=== PATIENT | male | born 1990 | race Caucasian/White ===

== ENCOUNTER 2022-05-15 12:34 | Emergency (ER) | payer OTHER ==
[2022-05-15] MEDS ORDERED: methocarbamoL 750 MG TAB PO STA (14:09)
[2022-05-15] MEDS ORDERED: SODIUM CHLORIDE 0.9% 1,000 ML IV STA (14:09)
[2022-05-15] MEDS ORDERED: IBUPROFEN 800 MG TAB PO STA (14:09)
--- NOTE | 2022-05-15 14:21 | ED ---
General Adult HPI - General Chief complaint: Trauma Stated complaint: IHS-electrical injury Time Seen by Provider: 05/15/22 14:00 Source: patient, RN notes reviewed, old records reviewed Mode of arrival: ambulatory - History of Present Illness Initial comments: Patient is a 32-year-old male who presents emergency department seeking evaluation following electrocution injury. Injury occurred on Sunday. Is currently Sunday. Received a shock from [address] while at work. Patient states her shock to his right hand. At that time he states he felt "funny" afterwards but did not seek medical attention. No chest pain at that time. No shortness of breath. No loss of consciousness. Has been feeling improved but was told by his to come and get evaluated today. Is complaining of bilateral paraspinal muscle tenderness and stiffness in his neck. No midline bone tendern ess. Denies any chest pain, shortness breath, don't think nausea, vomiting. Denies any dark urine. Denies any other acute complaints. His no other injuries. Does notice a small blister that formed and is since popped on his left hand at the site of his ring which may be related to the electrocution. He is up-to-date on tetanus. No pain at this site. No other findings. Presents for further evaluation at this time. Is not on blood thinners. - Related Data Previous Rx's Medication Instructions Recorded Ibuprofen [Motrin] 600 mg PO Q6HR PRN #20 tab 07/23/16 Allergies Allergy/AdvReac Type Severity Reaction Status Date / Time No Known Allergies Allergy Verified 05/15/22 12:40 Review of Systems ROS Statement: Those systems with pertinent positive or pertinent negative responses have been documented in the HPI. Review of Systems: CONST: Denies fever EYES: Denies blurry vision ENT: Denies nasal congestion C/V: Denies Chest pain RESP: Denies shortness of breath GI: Denies abdominal pain : Denies dysuria SKIN: Denies rash. MSK: Endorses muscle pain NEURO: Denies headache ROS Other: All systems not noted in ROS Statement are negative. Past Medical History Past Medical History: No Reported History History of Any Multi-Drug Resistant Organisms: None Reported Past Surgical History: No Surgical Hx Reported Past Psychological History: No Psychological Hx Reported Past Alcohol Use History: Occasional Past Drug Use History: None Reported General Exam - General Exam Comments Initial Comments: General: Appears in no acute distress. HEAD: Normal with no signs of head trauma. EYES: PERRLA, EOMI, conjunctiva normal, no discharge. ENT: Hearing grossly intact, normal oropharynx. RESPIRATORY: Clear breath sounds bilaterally. No wheezes, rales, or rhonchi. C/V: Regular rate and rhythm. S1 and S2 auscultated, no edema, peripheral pulses 2+ and intact throughout ABD: Abd is soft, nontender, nondistended EXT: Normal range of motion, no obvious deformity. No midline cervical, thoracic or lumbar spine tenderness to palpation. Patient does have bilateral paraspinal muscle tenderness to palpation in both trapezius muscles. SKIN: Small first-degree burn located over the left ring finger. Erythematous. Minimally tender. Small abrasion at the site. NEURO: Alert and oriented x 4. Cranial nerves II-XII intact. No focal sensory or strength deficits. Course Vital Signs 05/15/22 05/15/22 12:38 16:28 Temperature 98.3 F 98.2 F Pulse Rate 86 Pulse Rate [ 75 Right] Respiratory 16 18 Rate Blood Pressure 153/94 Blood Pressure 124/83 [Right Arm Sitting] O2 Sat by Pulse 98 99 Oximetry Medical Decision Making - Medical Decision Making Based on the patient's presentation and physical exam, he did experience a low voltage electrocution on Sunday. Presents 2 days later for evaluation. Only Complaints are muscle stiffness in bilateral trapezius muscles as well as a small first degree burn at the site of his ring on his left ring finger. Presents to be evaluated. No episodes of chest pain, shortness of breath, syncope. Did recommend we obtain basic screening labs, CPK, urine, chest x-ray, EKG. He was in agreement this plan. Will be medically treated for his muscles pains. He was in agreement this plan. Vital signs within normal limits. Tetanus is up-to-date. EKG was obtained and shows no signs of acute ischemia. No arrhythmias. Chest x-ray shows no signs of acute cardio pulmonary process. Laboratory studies are remarkable for a negative CPK. Remainder the labs are un remarkable. On reevaluation, vital signs and within normal limits. I discussed the results with the patient. I believe it is safer to be discharged home at this time. He does seem to have a small first to a burn on his left finger. Discussed local wound care. Will be discharged home with close follow-up with his PCP. I instructed the patient to follow up with their PCP in the next 1-3 days. I explained that the patient should return to the emergency department if they experience any worsening symptoms. Strict return precautions were discussed with the patient. The patient expressed understanding of these instructions. I answered all questions that the patient had. The patient was discharged home in good condition with their prescriptions and follow up information. - Lab Data Result diagrams: 05/15/22 14:40 05/15/22 14:40 Lab Results 05/15/22 05/15/22 05/15/22 Range/Units 14:40 14:40 14:43 WBC 6.4 (3.8-10.6) k/uL RBC 4.89 (4.30-5.90) m/uL Hgb 15.7 (13.0-17.5) gm/dL Hct 45.8 (39.0-53.0) % MCV 93.6 (80.0-100.0) fL MCH 32.1 (25.0-35.0) pg MCHC 34.3 (31.0-37.0) g/dL RDW 11.8 (11.5-15.5) % Plt Count 238 (150-450) k/uL MPV 7.8 Neutrophils % 56 % Lymphocytes % 31 % Monocytes % 7 % Eosinophils % 3 % Basophils % 1 % Neutrophils # 3.6 (1.3-7.7) k/uL Lymphocytes # 2.0 (1.0-4.8) k/uL Monocytes # 0.5 (0-1.0) k/uL Eosinophils # 0.2 (0-0.7) k/uL Basophils # 0.0 (0-0.2) k/uL Sodium 139 (137-145) mmol/L Potassium 3.9 (3.5-5.1) mmol/L Chloride 102 (98-107) mmol/L Carbon Dioxide 27 (22-30) mmol/L Anion Gap 10 mmol/L BUN 13 (9-20) mg/dL Creatinine 0.81 (0.66-1.25) mg/dL Est GFR (CKD-EPI)AfAm >90 (>60 ml/min/1.73 sqM) Est GFR (CKD-EPI)NonAf >90 (>60 ml/min/1.73 sqM) Glucose 100 H (74-99) mg/dL Calcium 9.4 (8.4-10.2) mg/dL Magnesium 2.1 (1.6-2.3) mg/dL Creatine Kinase 120 (55-170) U/L Urine Color Yellow Urine Appearance Clear (Clear) Urine pH 6.5 (5.0-8.0) Ur Specific [place] 1.015 (1.001-1.035) Urine Protein Negative (Negative) Urine Glucose (UA) Negative (Negative) Urine Ketones Negative (Negative) Urine Blood Negative (Negative) Urine Nitrite Negative (Negative) Urine Bilirubin Negative (Negative) Urine Urobilinogen <2.0 (<2.0) mg/dL Ur Leukocyte Esterase Negative (Negative) - EKG Data -: EKG Interpreted by Me EKG Comments: 12-lead Electrocardiogram Interpretation Note EKG was reviewed and interpreted by myself. 12-lead ECG performed at 1429 is interpreted by me as revealing normal sinus rhythm at a rate of 77 beats per minute. [place] is normal. [place] interval is 143 ms, QRS duration is 90 ms, QTc is 393 ms.. There were no ST or T wave abnormalities to suggest myocardial ischemia or injury. R wave progression across the precordium was satisfactory. By my interpretation this EKG is non-diagnostic for acute ischemia. Disposition Clinical Impression: Electrocution, Myalgia, First degree burn Disposition: HOME SELF-CARE Condition: Good Instructions (If sedation given, give patient instructions): Musculoskeletal Pain (ED) Is patient prescribed a controlled substance at d/c from ED?: No Referrals: Rei Haines Jr, [Primary Care Provider] - 1-2 days Time of Disposition: 16:00
--- NOTE | 2022-05-15 15:00 | XR ---
EXAMINATION TYPE: XR chest 2V DATE OF EXAM: 05/15/2022 COMPARISON: NONE HISTORY: Electrocution injury with pain. TECHNIQUE: Frontal and lateral views of the chest are obtained. FINDINGS: There is no focal air space opacity, pleural effusion, or pneumothorax seen. The cardiac silhouette size is within normal limits. The osseous structures are intact. Overlying bilateral met allic nipple ornaments are incidentally noted. IMPRESSION: No acute cardiopulmonary process.
[2022-05-15 15:05] LABS: Appearance,Urine Clear (Clear); Bilirubin,Urine Negative (Negative); Blood,Urine Negative (Negative); Color,Urine Yellow; Glucose,Urine (UA) Negative (Negative); Ketones,Urine Negative (Negative); Leukocyte Esterase,Urine Negative (Negative); Nitrite,Urine Negative (Negative); PH, Urine 6.5 (5.0-8.0); Protein,Urine Negative (Negative); Specific Gravity,Urine 1.015 (1.001-1.035); Urobilinogen,Urine <2.0 mg/dL (<2.0)
[2022-05-15 15:18] LABS: Basophils % (A) 1 %; Eosinophils # (A) 0.2 k/uL (0-0.7); Eosinophils % (A) 3 %; HCT 45.8 % (39.0-53.0); HGB 15.7 gm/dL (13.0-17.5); Lymphocytes % (A) 31 %; MCH 32.1 pg (25.0-35.0); MCHC 34.3 g/dL (31.0-37.0); MCV 93.6 fL (80.0-100.0); Mean Platelet Volume 7.8; Monocytes # (A) 0.5 k/uL (0-1.0); Monocytes % (A) 7 %; Neutrophils # (A) 3.6 k/uL (1.3-7.7); Neutrophils % (A) 56 %; Platelet Count 238 k/uL (150-450); RBC 4.89 m/uL (4.30-5.90); RDW 11.8 % (11.5-15.5); WBC 6.4 k/uL (3.8-10.6)
[2022-05-15 15:26] LABS: African American GFR (CKD) >90 (>60 ml/min/1.73 sqM); Anion Gap 10 mmol/L; Blood Urea Nitrogen 13 mg/dL (9-20); Calcium 9.4 mg/dL (8.4-10.2); Carbon Dioxide 27 mmol/L (22-30); Chloride 102 mmol/L (98-107); Creatine Kinase 120 U/L (55-170); Glucose 100 mg/dL (74-99); Magnesium 2.1 mg/dL (1.6-2.3); Non-African American GFR(CKD) >90 (>60 ml/min/1.73 sqM); Potassium 3.9 mmol/L (3.5-5.1); Sodium 139 mmol/L (137-145)
[2022-05-15 16:30] VITALS: BP 124/83; PULSE 75; RESP 18; TEMP 98.2
== END 2022-05-15 16:36 | disposition home or self-care (01) ==
LOC: EC 12:34
DX: T75.4XXA Electrocution, initial encounter (principal); T23.122A Burn of first degree of single left finger (nail) except thumb, initial encounter; M79.10 Myalgia, unspecified site; T31.0 Burns involving less than 10% of body surface
CPT/HCPCS: 36415; 71046; 80048; 81003; 82550; 83735; 85025; 93005; 96360; 96361; 99285

== ENCOUNTER → 2023-11-13 | Outpatient (CLI) | payer OTHER ==
--- NOTE | 2023-11-13 15:18 | XR ---
EXAMINATION TYPE: XR hand complete LT DATE OF EXAM: 11/13/2023 COMPARISON: 11/19/2014 HISTORY: Laceration left thumb TECHNIQUE: 3 view left hand FINDINGS: No acute fracture or dislocation is evident. Osseous structures appear intact. Joint spaces are preserved. No radiopaque foreign bodies are evident. Follow up exams can be performed 7-10 days from acute trauma for continued pain. IMPRESSION: 1. No acute osseous abnormality right thumb. 2. No radiopaque foreign body is evident.
== END | disposition home or self-care (01) ==
LOC: RADXRMAIN 14:46
PROVIDERS: ATTEND Emergency Medicine
DX: S61.402A Unspecified open wound of left hand, initial encounter (principal); X58.XXXA Exposure to other specified factors, initial encounter

== ENCOUNTER 2024-12-24 10:47 | Emergency (ER) | payer OTHER ==
--- NOTE | 2024-12-24 11:15 | ED ---
Eye Problem HPI - General Chief complaint: Eye Problems Stated complaint: IHS-Eye Issue Time Seen by Provider: 12/24/24 11:02 Source: patient, RN notes reviewed Mode of arrival: ambulatory Limitations: no limitations - History of Present Illness Initial comments: 34-year-old male with no reported medical conditions presenting to emergency department from work for concerns of foreign body in his right eye. 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 States that he felt a foreign body in his right eye. Denies visual disturbances, photophobia. Denies contact lens use. Last tetanus vaccination was within the last year. - Related Data Previous Rx's Medication Instructions Recorded Ibuprofen [Motrin] 600 mg PO Q6HR PRN #20 tab 07/23/16 Allergies Allergy/AdvReac Type Severity Reaction Status Date / Time No Known Allergies Allergy Verified 12/24/24 10:54 Review of Systems ROS Statement: Those systems with pertinent positive or pertinent negative responses have been documented in the HPI. ROS Other: All systems not noted in ROS Statement are negative. Past Medical History Past Medical History: No Reported History History of Any Multi-Drug Resistant Organisms: None Reported Past Surgical History: No Surgical Hx Reported Past Psychological History: No Psychological Hx Reported Past Alcohol Use History: Occasional Past Drug Use History: None Reported General Exam Limitations: no limitations General appearance: alert, in no apparent distress Expanded Eyelids: Normal Inspection: Bilateral Pupils: Regular, Round: Bilateral Sclera/Conjunctival: Foreign Body: Right ENT exam: Present: normal exam, mucous membranes moist Respiratory exam: Present: normal lung sounds bilaterally. Absent: respiratory distress, wheezes, rales, rhonchi, stridor Cardiovascular Exam: Present: regular rate, normal rhythm, normal heart sounds. Absent: systolic murmur, diastolic murmur, rubs, gallop, clicks GI/Abdominal exam: Present: soft, normal bowel sounds. Absent: distended, tenderness, guarding, rebound, rigid Extremities exam: Present: normal inspection, full ROM, normal capillary refill. Absent: tenderness, pedal edema, joint swelling, calf tenderness Skin exam: Present: warm, dry, intact, normal color. Absent: rash Course Vital Signs 12/24/24 10:52 Temperature 98.1 F Pulse Rate 84 Respiratory 16 Rate Blood Pressure 150/98 O2 Sat by Pulse 99 Oximetry Medical Decision Making - Medical Decision Making Was pt. sent in by a medical professional or institution (, [facility], JOB COACH/JOB DEVELOPER, urgent care, hospital, or alf...) When possible be specific @ -No Did you speak to anyone other than the patient for history (EMS, parent, family, police, friend...)? What history was obtained from this source @ -No Did you review nursing and triage notes (agree or disagree)? Why? @ -I reviewed and agree with nursing and triage notes Were old charts reviewed (outside hosp., previous admission, EMS record, old EKG, old radiological studies, urgent care reports/EKG's, alf records)? Report findings @ -No old charts were reviewed Differential Diagnosis (chest pain, altered mental status, abdominal pain women, abdominal pain men, vaginal bleeding, weakness, fever, dyspnea, syncope, headache, dizziness, GI bleed, back pain, seizure, CVA, palpatations, mental health, musculoskeletal)? @ -Corneal abrasion, foreign body in the eye, corneal ulceration, this list is not all inclusive EKG interpreted by me (3pts min.). @ -None X-rays interpreted by me (1pt min.). @ -None done CT interpreted by me (1pt min.). @ -None done U/S interpreted by me (1pt. min.). @ -None done What testing was considered but not performed or refused? (CT, X-rays, U/S, labs)? Why? @ -None What meds were considered but not given or refused? Why? @ -None Did you discuss the management of the patient with other professionals (professionals i.e. MEHNAZ Phelan, JOB COACH/JOB DEVELOPER, lab, RT, psych nurse, psych social worker, power lineman, teacher, safety and security officer, director of casework)? Give summary @ -No Was smoking cessation discussed for >3mins.? @ -No Was critical care preformed (if so, how long)? @ -No Were there social determinants of health that impacted care today? How? (Homelessness, low income, unemployed, alcoholism, drug addiction, transportation, low edu. Level, literacy, decrease access to med. care, snf, rehab)? @ -No Was there de-escalation of care discussed even if they declined (Discuss DNR or withdrawal of care, Hospice)? DNR status @ -No What co-morbidities impacted this encounter? (DM, HTN, Smoking, COPD, CAD, Cancer, CVA, ARF, Chemo, Hep., AIDS, mental health diagnosis, sleep apnea, morbid obesity)? @ -None Was patient admitted / discharged? Hospital course, mention meds given and route, prescriptions, significant lab abnormalities, going to OR and other pert inent info. @ -Discharge. 34-year-old male presents emergency department with foreign body sensation of the right eye. There is a noted speck of metal at the 3 o'clock position of the right eye near the iris. On reevaluation after patient went to use the restroom the metal had moved into the lower conjunctival eyelid that was removed with a cotton swab. Fluorescein staining with direct visualization under Chapa lamp reveals a small corneal abrasion. Patient provided with Ciprodex drops and instructed to follow-up with tenant coordinator or primary care provider. Return parameters discussed. Patient is up-to-date on his tetanus vaccination. Case discussed with Dr. Gould Undiagnosed new problem with uncertain prognosis? @ -No Drug Therapy requiring intensive monitoring for toxicity (Heparin, Nitro, Insulin, Cardizem)? @ -No Were any procedures done? @ -No Diagnosis/symptom? @ -corneal abrasion, foreign body in eye Acute, or Chronic, or Acute on Chronic? @ -acute Uncomplicated (without systemic symptoms) or Complicated (systemic symptoms)? @ -uncomplicated Side effects of treatment? @ -No Exacerbation, Progression, or Severe Exacerbation? @ -No Poses a threat to life or bodily function? How? (Chest pain, [place], [place], pneumonia, PE, COPD, DKA, ARF, appy, cholecystitis, CVA, Diverticulitis, Homicidal, Suicidal, threat to staff... and all critical care pts) @ -No Disposition Clinical Impression: Foreign body in eye region, Corneal abrasion Disposition: HOME SELF-CARE Condition: Good Instructions (If sedation given, give patient instructions): Eye Foreign Body (ED) Additional Instructions: Please return to the Emergency Department if symptoms worsen or any other concerns. Continue to use ciprofloxacin antibiotic drops in the right eye 2 drops every 6 hours for 5 days. Is patient prescribed a controlled substance at d/c from ED?: No Referrals: Rei Haines Jr, [Primary Care Provider] - 1-2 days Time of Disposition: 11:46
[2024-12-24] MEDS: PROPARACAINE 0.5% OPHTH DROPS 15 ML BTL RIGHT EYE STA (11:25)
[2024-12-24] MEDS: FLUORESCEIN STRIPS 1 MG STRIP RIGHT EYE ONE (11:25)
[2024-12-24] MEDS: CIPROFLOXACIN 0.3% OPHTH SOLN 5 ML BTL RIGHT EYE STA (12:32)
[2024-12-24 12:47] VITALS: BP 156/89; PULSE 86; RESP 20; TEMP 98.4
== END 2024-12-24 12:47 | disposition home or self-care (01) ==
LOC: EC 10:47
DX: T15.01XA Foreign body in cornea, right eye, initial encounter (principal); W45.8XXA Other foreign body or object entering through skin, initial encounter
CPT/HCPCS: 99283